=== PATIENT | female | born 1975 ===

== ENCOUNTER 2023-08-09 18:42 | Emergency (ER) | payer SELFPAY ==
[2023-08-09 19:14] VITALS: BP 110/68; PULSE 59; RESP 14; TEMP 36.6; O2SAT 100
--- NOTE | 2023-08-09 19:15 | PC.NURSE ---
Ccollar placed in triage
--- NOTE | 2023-08-09 20:31 | PC.NURSE ---
Pt ambulated to the desk and stated she wanted to leave. Pt was encouraged to stay to be seen by provider. Pt stated I am just going to rest, ice, and elevate at home. and ambulated out of the ED.
== END 2023-08-09 20:31 | disposition left against medical advice (07) ==
DX: R07.89 Other chest pain (principal)
CPT/HCPCS: 99199